=== PATIENT | male | born 1970 | race Caucasian/White ===

== ENCOUNTER 2016-11-22 11:13 | Emergency (ER) | payer OTHER ==
[~2016-11-22] VITALS: Ht 180.3 cm; Wt 83.9 kg
[2016-11-22] MEDS ORDERED: RANI150T PO (11:28)
[2016-11-22] MEDS ORDERED: ZYRT10CA PO (11:28)
[2016-11-22] MEDS ORDERED: VITA100037 PO (11:28)
[2016-11-22] MEDS ORDERED: CIPROFLOXACIN 500 MG TAB PO ONE (11:45)
[2016-11-22] MEDS ORDERED: KETOROLAC 60 MG/2 ML VIAL (J1885) IM ONE (11:45)
[2016-11-22] MEDS ORDERED: ADACEL/BOOSTRIX VACCINE (DIPHTH/PERTUSS/ACELL/TETANUS)0.5ML SYR (90715) IM ONE (11:45)
[2016-11-22] MEDS ORDERED: CIPR500T89 PO (12:38)
[2016-11-22] MEDS ORDERED: NORCOTAB PO (12:38)
[2016-11-22 12:50] VITALS: BP 150/74
--- NOTE | 2016-11-22 13:22 | REP ---
Right foot series: Four views. History: Right foot puncture wound. Findings: Four views of the right foot show no opaque foreign body. There is no evidence of fracture or soft tissue gas. Impression: Negative right foot radiographs. No opaque foreign body seen. Signed by Esteban Hernández MD 11/22/2016 03:17 P
== END 2016-11-22 12:51 | disposition home or self-care (01) ==
LOC: M ED 12:02
DX: S91.341A Puncture wound with foreign body, right foot, initial encounter (principal); W45.0XXA Nail entering through skin, initial encounter; Y92.89 Other specified places as the place of occurrence of the external cause; Y93.89 Activity, other specified; Y99.0 Civilian activity done for income or pay; J30.9 Allergic rhinitis, unspecified; Z79.899 Other long term (current) drug therapy; Z88.0 Allergy status to penicillin

== ENCOUNTER → 2018-09-19 | Outpatient (REF) | payer OTHER ==
[~2018-09-19] MED LIST: CIPR-249 PO; NORCOTAB PO; RANI150T PO; VITA100067 PO; ZYRT10CA PO
[2018-09-19 08:58] LABS: BASO # 0.1 10^3/uL (0.0-0.2); BASO % 1.5 % (0.0-1.0); EOS # 2.3 10^3/uL (0.0-0.50); HEMATOCRIT 51.5 % (42.0-52.0); HEMOGLOBIN 16.7 g/dl (13.5-17.5); LYMPH # 1.6 10^3/uL (1.5-4.5); LYMPH % 23.5 % (24.0-44.0); MEAN CORPUSCULAR HEMOGLOBIN 27.4 pg (27.0-33.0); MEAN CORPUSCULAR HGB CONC 32.4 g/dl (32.0-36.5); MEAN CORPUSCULAR VOLUME 84.6 fl (80.0-96.0); MONO # 0.3 10^3/uL (0.0-0.8); MONO % 4.5 % (0.0-5.0); NEUTROPHILS # 2.4 10^3/uL (1.8-7.7); NEUTROPHILS % 36.1 % (36.0-66.0); PLATELET COUNT, AUTOMATED 170 10^3/uL (150-450); RED BLOOD COUNT 6.09 10^6/uL (4.30-6.10); WHITE BLOOD COUNT 6.6 10^3/uL (4.0-10.0)
[2018-09-19 09:17] LABS: HEMOGLOBIN A1c 5.4 %
[2018-09-19 09:31] LABS: ALBUMIN 4.3 GM/DL (3.2-5.2); ALT/SGPT 54 U/L (12-78); BLOOD UREA NITROGEN 22 MG/DL (7-18); CALCIUM LEVEL 8.6 MG/DL (8.5-10.1); CARBON DIOXIDE LEVEL 30 MEQ/L (21-32); CHLORIDE LEVEL 104 MEQ/L (98-107); CHOLESTEROL LEVEL 231 MG/DL (<200); CHOLESTEROL RISK RATIO 6.078 (<5); CREATININE FOR GFR 1.04 MG/DL (0.70-1.30); GLOMERULAR FILTRATION RATE > 60.0 (>60); GLUCOSE, FASTING 103 MG/DL (70-100); HDL CHOLESTEROL 38 MG/DL (>40); LDL CHOLESTEROL 172 MG/DL (<100); NON-HDL-C 193 MG/DL; POTASSIUM SERUM 4.4 MEQ/L (3.5-5.1); SODIUM LEVEL 140 MEQ/L (136-145); THYROID STIMULATING HORMONE 0.912 uIU/ML (0.358-3.740); TOTAL PROTEIN 7.4 GM/DL (6.4-8.2); TRIGLYCERIDES LEVEL 104 MG/DL (<150)
[2018-09-19 09:35] LABS: EOS % 34.2 % (0.0-3.0)
== END ==
LOC: M LABNEURO 08:44
PROVIDERS: ATTEND Nurse Practitioner Adult Health
DX: E78.2 Mixed hyperlipidemia (principal); E78.00 Pure hypercholesterolemia, unspecified; Z79.899 Other long term (current) drug therapy

== ENCOUNTER → 2019-03-16 | Outpatient (REF) | payer OTHER ==
[~2019-03-16] MED LIST changes: +HYDR-3715 PO; -NORCOTAB PO
[2019-03-16 10:06] LABS: BASO # 0.1 10^3/uL (0.0-0.2); EOS # 0.3 10^3/uL (0.0-0.5); EOS % 5.3 % (0.0-3.0); HEMATOCRIT 50.1 % (42.0-52.0); HEMOGLOBIN 16.5 g/dl (13.5-17.5); LYMPH # 1.7 10^3/uL (1.5-5.0); LYMPH % 35.2 % (24.0-44.0); MEAN CORPUSCULAR HEMOGLOBIN 27.6 pg (27.0-33.0); MEAN CORPUSCULAR HGB CONC 32.9 g/dl (32.0-36.5); MEAN CORPUSCULAR VOLUME 83.8 fl (80.0-96.0); MONO # 0.4 10^3/uL (0.0-0.8); MONO % 7.8 % (0.0-5.0); NEUTROPHILS # 2.5 10^3/uL (1.5-8.5); NEUTROPHILS % 50.5 % (36.0-66.0); PLATELET COUNT, AUTOMATED 164 10^3/uL (150-450); RED BLOOD COUNT 5.98 10^6/uL (4.30-6.10); WHITE BLOOD COUNT 4.9 10^3/uL (4.0-10.0)
[2019-03-16 10:34] LABS: ALT/SGPT 29 U/L (12-78); BILIRUBIN,TOTAL 1.2 MG/DL (0.2-1.0); BLOOD UREA NITROGEN 19 MG/DL (7-18); CALCIUM LEVEL 9.1 MG/DL (8.5-10.1); CARBON DIOXIDE LEVEL 31 MEQ/L (21-32); CHLORIDE LEVEL 104 MEQ/L (98-107); CHOLESTEROL LEVEL 178 MG/DL (<200); CHOLESTEROL RISK RATIO 4.139 (<5); CREATININE FOR GFR 1.13 MG/DL (0.70-1.30); GLOMERULAR FILTRATION RATE > 60.0 (>60); GLUCOSE, FASTING 98 MG/DL (70-100); HDL CHOLESTEROL 43 MG/DL (>40); LDL CHOLESTEROL 104 MG/DL (<100); NON-HDL-C 135 MG/DL; POTASSIUM SERUM 4.8 MEQ/L (3.5-5.1); SODIUM LEVEL 140 MEQ/L (136-145); TRIGLYCERIDES LEVEL 154 MG/DL (<150)
== END ==
LOC: M LAB REF 08:28
PROVIDERS: ATTEND Nurse Practitioner Adult Health
DX: Z79.899 Other long term (current) drug therapy (principal); E78.1 Pure hyperglyceridemia; E78.00 Pure hypercholesterolemia, unspecified; E78.2 Mixed hyperlipidemia

== ENCOUNTER → 2019-10-25 | Outpatient (REF) | payer OTHER ==
[2019-10-25 11:19] LABS: BASO # 0.1 10^3/uL (0.0-0.2); BASO % 1.2 % (0.0-1.0); EOS # 0.2 10^3/uL (0.0-0.5); EOS % 5.2 % (0.0-3.0); HEMATOCRIT 48.7 % (42.0-52.0); HEMOGLOBIN 15.9 g/dl (13.5-17.5); LYMPH # 1.7 10^3/uL (1.5-5.0); LYMPH % 39.4 % (24.0-44.0); MEAN CORPUSCULAR HEMOGLOBIN 27.7 pg (27.0-33.0); MEAN CORPUSCULAR HGB CONC 32.6 g/dl (32.0-36.5); MEAN CORPUSCULAR VOLUME 84.7 fl (80.0-96.0); MONO # 0.3 10^3/uL (0.0-0.8); MONO % 7.4 % (0.0-5.0); NEUTROPHILS % 46.6 % (36.0-66.0); PLATELET COUNT, AUTOMATED 170 10^3/uL (150-450); RED BLOOD COUNT 5.75 10^6/uL (4.30-6.10); WHITE BLOOD COUNT 4.2 10^3/uL (4.0-10.0)
[2019-10-25 11:30] LABS: ALT/SGPT 28 U/L (12-78); BLOOD UREA NITROGEN 16 MG/DL (7-18); CALCIUM LEVEL 8.7 MG/DL (8.5-10.1); CARBON DIOXIDE LEVEL 29 MEQ/L (21-32); CHLORIDE LEVEL 105 MEQ/L (98-107); CHOLESTEROL LEVEL 178 MG/DL (<200); CHOLESTEROL RISK RATIO 5.235 (<5); CREATININE FOR GFR 1.13 MG/DL (0.70-1.30); GLOMERULAR FILTRATION RATE > 60.0 (>56); GLUCOSE, FASTING 91 MG/DL (70-100); HDL CHOLESTEROL 34 MG/DL (>40); LDL CHOLESTEROL 104 MG/DL (<100); NON-HDL-C 144 MG/DL; POTASSIUM SERUM 4.1 MEQ/L (3.5-5.1); SODIUM LEVEL 140 MEQ/L (136-145); TRIGLYCERIDES LEVEL 199 MG/DL (<150)
== END ==
LOC: M LABDRAW1 10:28
PROVIDERS: ATTEND Nurse Practitioner Adult Health
DX: E78.2 Mixed hyperlipidemia (principal); E78.00 Pure hypercholesterolemia, unspecified; Z79.899 Other long term (current) drug therapy

== ENCOUNTER → 2020-03-22 | Outpatient (REF) | payer OTHER ==
[2020-03-22 11:36] LABS: BASO # 0.1 10^3/uL (0.0-0.2); BASO % 1.2 % (0.0-1.0); EOS # 0.3 10^3/uL (0.0-0.5); EOS % 6.1 % (0.0-3.0); HEMATOCRIT 50.3 % (42.0-52.0); HEMOGLOBIN 16.4 g/dl (13.5-17.5); LYMPH # 1.8 10^3/uL (1.5-5.0); LYMPH % 34.7 % (24.0-44.0); MEAN CORPUSCULAR HEMOGLOBIN 27.9 pg (27.0-33.0); MEAN CORPUSCULAR HGB CONC 32.6 g/dl (32.0-36.5); MEAN CORPUSCULAR VOLUME 85.7 fl (80.0-96.0); MONO # 0.3 10^3/uL (0.0-0.8); MONO % 6.5 % (0.0-5.0); NEUTROPHILS # 2.6 10^3/uL (1.5-8.5); NEUTROPHILS % 51.3 % (36.0-66.0); PLATELET COUNT, AUTOMATED 153 10^3/uL (150-450); RED BLOOD COUNT 5.87 10^6/uL (4.30-6.10); WHITE BLOOD COUNT 5.1 10^3/uL (4.0-10.0)
[2020-03-22 12:01] LABS: ALBUMIN 4.1 GM/DL (3.2-5.2); ALT/SGPT 33 U/L (12-78); BILIRUBIN,TOTAL 0.8 MG/DL (0.2-1.0); BLOOD UREA NITROGEN 14 MG/DL (7-18); CALCIUM LEVEL 9.2 MG/DL (8.5-10.1); CARBON DIOXIDE LEVEL 34 MEQ/L (21-32); CHLORIDE LEVEL 105 MEQ/L (98-107); CHOLESTEROL LEVEL 175 MG/DL (<200); CHOLESTEROL RISK RATIO 4.861 (<5); CREATININE FOR GFR 1.15 MG/DL (0.70-1.30); GLOMERULAR FILTRATION RATE > 60.0 (>56); GLUCOSE, FASTING 82 MG/DL (70-100); HDL CHOLESTEROL 36 MG/DL (>40); LDL CHOLESTEROL 86 MG/DL (<100); NON-HDL-C 139 MG/DL; POTASSIUM SERUM 4.3 MEQ/L (3.5-5.1); SODIUM LEVEL 139 MEQ/L (136-145); TOTAL PROTEIN 7.4 GM/DL (6.4-8.2); TRIGLYCERIDES LEVEL 263 MG/DL (<150)
== END ==
LOC: M LAB REF 10:20
PROVIDERS: ATTEND Nurse Practitioner Adult Health
DX: E78.2 Mixed hyperlipidemia (principal); E78.00 Pure hypercholesterolemia, unspecified; E78.1 Pure hyperglyceridemia; Z79.899 Other long term (current) drug therapy

== ENCOUNTER 2021-04-08 15:53 | Emergency (ER) | payer OTHER ==
[~2021-04-08] VITALS: Ht 180.3 cm; Wt 86.4 kg
[2021-04-08] MEDS ORDERED: ACETAMINOPHEN 500 MG TAB PO ONE (16:50)
[2021-04-08] MEDS ORDERED: IBUPROFEN 600MG TAB PO ONE (17:00)
[2021-04-08 19:45] VITALS: BP 154/84
[2021-04-09] MEDS ORDERED: AZIT-12 (07:36)
[2021-04-09] MEDS ORDERED: ACET-683 PO (07:36)
== END 2021-04-08 20:06 | disposition home or self-care (01) ==
LOC: M ED 15:53
DX: U07.1 COVID-19 (principal); Z88.0 Allergy status to penicillin

== ENCOUNTER 2021-04-08 20:04 | Outpatient (CLI) | payer OTHER ==
[2021-04-08] VITALS (8 sets, daily range): BP systolic 111–128; BP diastolic 61–71
--- NOTE | 2021-04-08 18:06 | CR.PDOC ---
General Date of Consultation: Apr 08, 2021 Referring Provider: Ariane Hester MD Attending Physician: ROSHNI VALDES MD Consultation REASON FOR CONSULTATION/CHIEF COMPLAINT: Covid-19 infection for MABs HISTORY OF PRESENT ILLNESS: 51 yo M with a history of GERD who developed SOB, myalgias and at some point intermittent fevers on 03/30 and on 04/01 had a positive covid-19 test in the outpatient setting, and had been managing at home with antipyretics and supportive care but came in today because he felt poorly with persisting myalgias and generalized illness. In the ED, he was hemodynamically stable, afebrile and saturating well on room air and on exertion had a saturation of 92%. He is now being admitted for observation for infusion of Casarivimab/imdevimab. ALLERGIES: Please see below. HOME MEDICATIONS: Please see below. PAST MEDICAL HISTORY: GERD PAST SURGICAL HISTORY: N/A SOCIAL HISTORY: No smoking No illicit drug use REVIEW OF SYSTEMS: CONSTITUTIONAL: generalized weakness, poor PO, had episodic fevers HEENT: No headaches currently or vision changes CARDIOVASCULAR: No chest pain, no palpitations RESPIRATORY: Some DUBOIS, no pleurisy MUSCULOSKELETAL: achy all over, otherwise with full strength GASTROINTESTINAL: No abdominal pain, poor PO NEUROLOGICAL: No asymmetrical weakness, gait instability or speech changes PHYSICAL EXAMINATION: VITAL SIGNS: Please see below.NAD, obese HEENT: NCAT, EOMI, MMM RESPIRATORY: Diminished sounds, otherwise clear without noted wheezing or crackles CARDIOVASCULAR: RRR, no m/r/g ABDOMEN: Obese, soft, NTND EXTREMITIES: WWP, no LE edema NEUROLOGICAL: CN 3-12 intact, speech clear PSYCHIATRIC: AOx3 LABORATORY DATA: Please see below. ASSESSMENT/PLAN: 51 yo M with a history of GERD who developed SOB, myalgias and at some point intermittent fevers on 03/30 and on 04/01 had a positive covid-19 test in the outpatient setting, and had been managing at home with antipyretics and supportive care but came in today because he felt poorly with persisting myalgias and generalized illness who is now being admitted for observation for infusion of Casarivimab/imdevimab. Covid-19 infection: -MABs ordered per protocol Plan will be to discharge him home after casarivimab/imdevimab infusion is complete. Allergies Coded Allergies: amoxicillin (Verified Allergy, Mild, rash, 04/08/21) Home Medications Scheduled Cetirizine HCl (Zyrtec Allergy) 10 Mg Cap, 10 MG PO DAILY, (Reported) Ciprofloxacin HCl (Cipro) 500 Mg Tab, 500 MG PO BID, #20 Ranitidine HCl (Ranitidine HCl) 150 Mg Tab, 150 MG PO DAILY, #30 (Reported) Vitamin D (Vitamin D) 1,000 Unit Cap, 1,000 UNIT PO DAILY, (Reported) Scheduled PRN Hydrocodone/Acetaminophen (Hydrocodone-Acetamin 5-325 mg) 1 Tab Tab, 1 TAB PO Q6H PRN for PAIN, #15 ROSHNI VALDES MD Apr 08, 2021 17:54
[~2021-04-08 20:04] MED LIST changes: +ACETAMINOPHEN TAB 650MG DOSE (2X325MG) PO PRN; +ALBUTEROL 90 MCG/ACT 8GM HFA INHALER INH PRN; +ALBUTEROL SULFATE 2.5 MG/0.5 ML INH NEB SOLN INH PRN; +EPINEPHrine INJ 1 MG/ML 1ML AMP IM PRN; +NS 1,000 ML IV SCH; +diphenhydrAMINE 50MG/ML VIAL (J1200) IV PRN; +methylPREDNISolone 125MG 2ML VIAL IV PRN
[2021-04-08] MEDS ORDERED: CASIRIVIMAB/IMDEVIMAB 1,200 MG in NS 250 ML IV ONE (21:00)
[2021-04-09] MEDS ORDERED: AZIT-12 (07:36)
[2021-04-09] MEDS ORDERED: ACET-683 PO (07:36)
== END 2021-04-09 | disposition home or self-care (01) ==
LOC: M OPCLI4 20:04 → M ICU 20:05 → M OPCLI4 04-09
PROVIDERS: ATTEND Emergency Medicine
DX: U07.1 COVID-19 (principal); Z88.1 Allergy status to other antibiotic agents
CPT/HCPCS: 96361; M0243

== ENCOUNTER 2021-04-09 07:09 | Emergency (ER) | payer OTHER ==
[~2021-04-09] VITALS: Ht 180.3 cm; Wt 86.4 kg
[~2021-04-09 07:09] MED LIST changes: -ACETAMINOPHEN TAB 650MG DOSE (2X325MG) PO PRN; -ALBUTEROL 90 MCG/ACT 8GM HFA INHALER INH PRN; -ALBUTEROL SULFATE 2.5 MG/0.5 ML INH NEB SOLN INH PRN; -EPINEPHrine INJ 1 MG/ML 1ML AMP IM PRN; -NS 1,000 ML IV SCH; -diphenhydrAMINE 50MG/ML VIAL (J1200) IV PRN; -methylPREDNISolone 125MG 2ML VIAL IV PRN
[2021-04-09] MEDS ORDERED: AZIT-12 (07:36)
[2021-04-09] MEDS ORDERED: ACET-683 PO (07:36)
[2021-04-09 07:37] VITALS: O2SAT 92
[2021-04-09] MEDS ORDERED: ACETAMINOPHEN 500 MG TAB PO ONE (08:40)
[2021-04-09] MEDS ORDERED: IBUPROFEN 600MG TAB PO ONE (08:45)
[2021-04-09 09:15] VITALS: BP 126/65
== END 2021-04-09 09:33 | disposition home or self-care (01) ==
LOC: M ED 07:09
DX: U07.1 COVID-19 (principal); R06.00 Dyspnea, unspecified; Z87.01 Personal history of pneumonia (recurrent); K21.9 Gastro-esophageal reflux disease without esophagitis; Z88.0 Allergy status to penicillin